=== PATIENT | female | born 1975 | race Caucasian/White ===

== ENCOUNTER 2016-10-15 07:40 | Inpatient (IN) | payer OTHER ==
[~2016-10-15 07:40] MED LIST: ACTOPLUS MET 151 TA PO; ACTOS15 MG; ADVIL200 M1 PO; AMARYL4 MG PO; AMETHIA LO TAB1 EAC1 PO; ANEXSIA 5/325 M1 TAB PO; BABY ASPIRIN81 MG; BYETTA5 MCG/0.02; EFFEXOR XR150 MG; EMEND40 MG PO; ENDOCET1 EA PO; FLINTSTONE1 TAB.CHEW; FOLIC ACID0.4 MG; GLIMEPIRIDE; GLUCOPHAGE XR750 MG PO; GLUCOPHAGE500 MG PO; HUMALOG100 U/ML; HUMALOG100 UNITS/ SC; HUMULIN 50/50 V10 ML; HYDROCODONE-AP473 ML PO; INVOKAMET XR 11 EACH PO; KEFLEX500 MG PO; KYTRIL1 MG; LEVAQUIN500 MG PO; LEVAQUIN750 M1 PO; LEVEMIR100 U/M SQ; LEVEMIR100 U/ML SQ; LUNESTA3 MG; METFORMIN HCL850 MG PO; MULTIVITAMIN1 CAP PO; NORCO 5-325 TA1 EACH PO; NORCO 5/3251 TAB PO; NOVOLOG100 UNIT/1 SQ; PERCOCET 5/3251 TAB PO; POTASSIUM99 M5 PO; PROTONIX40 MG; SEPTRA DS TABLE1 TAB PO; TOPAMAX25 MG PO; TOUJEO SOL300 UNIT/1 SC; ULTRACET TABLET1 TAB PO; VICTOZA0.6 MG/0.1 SQ; [UNRECOGNIZED DRUG - OTHER]
[2016-10-15 08:33] LABS: HCT-HEMATOCRIT 53.1 % (34.0-49.0); HGB-HEMOGLOBIN 18.1 gm/dl (12.0-15.5); MCH (MEAN CORPUSCULAR HGB) 30.3 pg (28.0-32.0); MCHC MEAN CORPUSCULAR HGB CONC 34.1 % (32.0-36.0); MCV (MEAN CELL VOLUME) 88.8 fl (82.0-96.0); MEAN PLATELET VOLUME 8.6 cmc (9.4-12.4); PLATELET COUNT 335 tho/cmm (150-450); RED BLOOD COUNT 5.98 mil/cmm (4.00-5.20); RED CELL DISTRIBUTION WIDTH 12.5 % (12.4-16.4); WHITE BLOOD COUNT 24.3 tho/cmm (4.0-10.0)
[2016-10-15] MEDS ORDERED: CEFUROXIME500 M1 PO (08:34)
[2016-10-15 08:39] LABS: KETONE-BETA (WHOLE BLOOD) 4.6 mmol/L (0.0-0.6)
[2016-10-15 08:49] LABS: PREGNANCY-SERUM NEGATIVE (NEGATIVE)
[2016-10-15 08:53] LABS: URINE BILIRUBIN NEGATIVE (NEG); URINE BLOOD MODERATE (NEG); URINE GLUCOSE (UA) LARGE (NEG); URINE KETONE LARGE (NEG); URINE LEUKOCYTE ESTERASE NEGATIVE (NEG); URINE NITRITE NEGATIVE (NEG); URINE PROTEIN MODERATE (NEG)
[2016-10-15 08:56] LABS: URINE APPEARANCE HAZY; URINE COLOR PALE YELLOW
[2016-10-15 08:57] LABS: ALB/GLOB RATIO 0.9 (0.8-2.0); ALBUMIN 4.1 g/dl (3.5-5.0); ALKALINE PHOSPHATASE 158 U/L (33-138); ALT/SGPT 20 U/L (12-78); AST/SGOT 19 U/L (10-40); BILIRUBIN,TOTAL 0.5 mg/dl (0-1.5); BLOOD UREA NITROGEN 18 mg/dl (6-24); CALCIUM 9.1 mg/dl (8.5-10.5); CHLORIDE 101 mmol/l (96-110); CREATININE 1.19 mg/dl (0.50-1.10); LIPASE 105 U/L (73-393); MAGNESIUM 2.3 mg/dl (1.8-2.6); POTASSIUM 5.6 mmol/L (3.7-5.1); SODIUM 131 mmol/L (135-145); eGFR VALUE FOR BLACK 67 mL/Min
[2016-10-15 08:59] LABS: URINE WBC RARE /[HPF] (0-5)
[2016-10-15 09:00] LABS: ANION GAP 32 mmol/L (0-20)
[2016-10-15 09:00] LABS: URINE AMORPHOUS 1+; URINE EPITHELIAL CELLS RARE /[HPF] (0-10)
[2016-10-15 09:01] LABS: CARBON DIOXIDE-VENOUS 4 mmol/L (22-32); GLUCOSE 499 mg/dL (70-110)
[2016-10-15 09:05] LABS: BAND % 7 % (0-20); BAND ABSOLUTE COUNT 1.7 tho/cmm (0-2.0)
[2016-10-15] MEDS ORDERED: IBUPROFEN800 M1 PO (09:36)
[2016-10-15 12:23] LABS: ARTERIAL BLD GAS O2 SATURATION 98 % (95-98); ARTERIAL PO2 140 mmHg (70-100); BICARBONATE 2 mmol/L (21-28)
[2016-10-15 12:29] LABS: ANION GAP 28 mmol/L (0-20); BLOOD UREA NITROGEN 17 mg/dl (6-24); CALCIUM 7.6 mg/dl (8.5-10.5); CHLORIDE 108 mmol/l (96-110); CREATININE 0.94 mg/dl (0.50-1.10); GLUCOSE 362 mg/dL (70-110); POTASSIUM 4.8 mmol/L (3.7-5.1); SODIUM 136 mmol/L (135-145); eGFR VALUE FOR BLACK 89 mL/Min
[2016-10-15 12:34] LABS: ABG CO2 ARTERIAL 2 mmol/L (21-27); ARTERIAL BLOOD GAS PCO2 9 mmHg (32-45); PH 6.89 Units (7.35-7.45)
[2016-10-15 12:41] LABS: CARBON DIOXIDE-VENOUS 5 mmol/L (22-32)
[2016-10-15 13:29] LABS: ARTERIAL BLD GAS O2 SATURATION 97 % (95-98); ARTERIAL PO2 129 mmHg (70-100); BICARBONATE 2 mmol/L (21-28)
[2016-10-15 13:31] LABS: ABG CO2 ARTERIAL 2 mmol/L (21-27); ARTERIAL BLOOD GAS PCO2 9 mmHg (32-45); PH 6.92 Units (7.35-7.45)
[2016-10-15 16:29] LABS: MAGNESIUM 1.9 mg/dl (1.8-2.6)
[2016-10-15 17:22] LABS: PHOSPHOROUS 1.4 mg/dl (2.5-4.9)
[2016-10-15 17:43] LABS: ARTERIAL BLD GAS O2 SATURATION 98 % (95-98); ARTERIAL PO2 115 mmHg (70-100); BICARBONATE 4 mmol/L (21-28); BLOOD GAS BASE EXCESS -27 mM/L (-/+3)
[2016-10-15 17:45] LABS: ABG CO2 ARTERIAL 4 mmol/L (21-27); ARTERIAL BLOOD GAS PCO2 15 mmHg (32-45); PH 7.05 Units (7.35-7.45)
[2016-10-15 19:24] LABS: BLOOD UREA NITROGEN 16 mg/dl (6-24); CALCIUM 7.4 mg/dl (8.5-10.5); CHLORIDE 117 mmol/l (96-110); CREATININE 0.79 mg/dl (0.50-1.10); GLUCOSE 236 mg/dL (70-110); POTASSIUM 4.3 mmol/L (3.7-5.1); SODIUM 141 mmol/L (135-145); eGFR VALUE FOR BLACK >90 mL/Min
[2016-10-15 19:30] LABS: ANION GAP 24 mmol/L (0-20)
[2016-10-15 19:32] LABS: CARBON DIOXIDE-VENOUS 4 mmol/L (22-32)
[2016-10-15 20:51] LABS: ANION GAP 20 mmol/L (0-20); BLOOD UREA NITROGEN 12 mg/dl (6-24); CALCIUM 7.3 mg/dl (8.5-10.5); CHLORIDE 118 mmol/l (96-110); CREATININE 0.66 mg/dl (0.50-1.10); GLUCOSE 172 mg/dL (70-110); POTASSIUM 4.3 mmol/L (3.7-5.1); SODIUM 140 mmol/L (135-145); eGFR VALUE FOR BLACK >90 mL/Min
[2016-10-15 20:53] LABS: CARBON DIOXIDE-VENOUS 6 mmol/L (22-32)
[2016-10-16 01:14] LABS: ANION GAP 20 mmol/L (0-20); BLOOD UREA NITROGEN 11 mg/dl (6-24); CALCIUM 6.9 mg/dl (8.5-10.5); CHLORIDE 119 mmol/l (96-110); CREATININE 0.76 mg/dl (0.50-1.10); GLUCOSE 196 mg/dL (70-110); POTASSIUM 3.8 mmol/L (3.7-5.1); SODIUM 143 mmol/L (135-145); eGFR VALUE FOR BLACK >90 mL/Min
[2016-10-16 01:29] LABS: CARBON DIOXIDE-VENOUS 8 mmol/L (22-32)
[2016-10-16 04:22] LABS: HCT-HEMATOCRIT 39.8 % (34.0-49.0); MCH (MEAN CORPUSCULAR HGB) 29.4 pg (28.0-32.0); MCHC MEAN CORPUSCULAR HGB CONC 35.2 % (32.0-36.0); MEAN PLATELET VOLUME 8.1 cmc (9.4-12.4); NEUTROPHIL-AUTOMATED 9.4 tho/cmm (1.6-8.0); RED BLOOD COUNT 4.77 mil/cmm (4.00-5.20); RED CELL DISTRIBUTION WIDTH 12.6 % (12.4-16.4); WHITE BLOOD COUNT 13.4 tho/cmm (4.0-10.0)
[2016-10-16 04:28] LABS: ANION GAP 18 mmol/L (0-20); BLOOD UREA NITROGEN 11 mg/dl (6-24); CALCIUM 7.4 mg/dl (8.5-10.5); CARBON DIOXIDE-VENOUS 11 mmol/L (22-32); CHLORIDE 118 mmol/l (96-110); CREATININE 0.74 mg/dl (0.50-1.10); GLUCOSE 154 mg/dL (70-110); MAGNESIUM 2.1 mg/dl (1.8-2.6); POTASSIUM 3.5 mmol/L (3.7-5.1); SODIUM 143 mmol/L (135-145); eGFR VALUE FOR BLACK >90 mL/Min
[2016-10-16 04:30] LABS: ANION GAP 16 mmol/L (0-20); BLOOD UREA NITROGEN 10 mg/dl (6-24); CALCIUM 7.4 mg/dl (8.5-10.5); CARBON DIOXIDE-VENOUS 11 mmol/L (22-32); CHLORIDE 118 mmol/l (96-110); CREATININE 0.75 mg/dl (0.50-1.10); GLUCOSE 154 mg/dL (70-110); POTASSIUM 3.5 mmol/L (3.7-5.1); SODIUM 141 mmol/L (135-145); eGFR VALUE FOR BLACK >90 mL/Min
[2016-10-16 04:33] LABS: KETONE-BETA (WHOLE BLOOD) 2.1 mmol/L (0.0-0.6)
[2016-10-16 04:51] LABS: MCV (MEAN CELL VOLUME) 83.4 fl (82.0-96.0); PLATELET COUNT 157 tho/cmm (150-450)
[2016-10-16 04:59] LABS: ARTERIAL BLD GAS O2 SATURATION 99 % (95-98); ARTERIAL PO2 112 mmHg (70-100); BLOOD GAS BASE EXCESS -17 mM/L (-/+3)
[2016-10-16 05:00] LABS: ARTERIAL BLOOD GAS PCO2 21 mmHg (32-45); BICARBONATE 9 mmol/L (21-28); PH 7.24 Units (7.35-7.45)
[2016-10-16 05:02] LABS: ABG CO2 ARTERIAL 9 mmol/L (21-27)
[2016-10-16 05:02] LABS: PHOSPHOROUS 0.7 mg/dl (2.5-4.9)
[2016-10-16 07:27] LABS: BAND % 14 % (0-20); BAND ABSOLUTE COUNT 1.9 tho/cmm (0-2.0)
[2016-10-16 10:02] LABS: TSH-THYROID STIMULATING HORM. 1.51 uIU/ml (0.40-3.80)
[2016-10-16 10:28] LABS: ANION GAP 18 mmol/L (0-20); BLOOD UREA NITROGEN 10 mg/dl (6-24); CALCIUM 7.4 mg/dl (8.5-10.5); CARBON DIOXIDE-VENOUS 11 mmol/L (22-32); CHLORIDE 122 mmol/l (96-110); CREATININE 0.67 mg/dl (0.50-1.10); GLUCOSE 98 mg/dL (70-110); POTASSIUM 3.6 mmol/L (3.7-5.1); SODIUM 147 mmol/L (135-145); eGFR VALUE FOR BLACK >90 mL/Min
[2016-10-16 12:54] LABS: ANION GAP 17 mmol/L (0-20); BLOOD UREA NITROGEN 8 mg/dl (6-24); CALCIUM 7.8 mg/dl (8.5-10.5); CARBON DIOXIDE-VENOUS 11 mmol/L (22-32); CHLORIDE 124 mmol/l (96-110); CREATININE 0.59 mg/dl (0.50-1.10); GLUCOSE 88 mg/dL (70-110); POTASSIUM 3.9 mmol/L (3.7-5.1); SODIUM 148 mmol/L (135-145); eGFR VALUE FOR BLACK >90 mL/Min
[2016-10-16 16:46] LABS: BLOOD UREA NITROGEN 8 mg/dl (6-24); CALCIUM 7.5 mg/dl (8.5-10.5); CARBON DIOXIDE-VENOUS 13 mmol/L (22-32); CHLORIDE 124 mmol/l (96-110); CREATININE 0.57 mg/dl (0.50-1.10); SODIUM 150 mmol/L (135-145); eGFR VALUE FOR BLACK >90 mL/Min
[2016-10-16 16:48] LABS: ANION GAP 16 mmol/L (0-20)
[2016-10-16 16:50] LABS: GLUCOSE 66 mg/dL (70-110); PHOSPHOROUS 0.5 mg/dl (2.5-4.9)
[2016-10-16 22:24] LABS: BLOOD UREA NITROGEN 5 mg/dl (6-24); CALCIUM 7.8 mg/dl (8.5-10.5); CHLORIDE 114 mmol/l (96-110); CREATININE 0.64 mg/dl (0.50-1.10); MAGNESIUM 2.3 mg/dl (1.8-2.6); PHOSPHOROUS 1.2 mg/dl (2.5-4.9); POTASSIUM 3.5 mmol/L (3.7-5.1); SODIUM 142 mmol/L (135-145); eGFR VALUE FOR BLACK >90 mL/Min
[2016-10-16 22:31] LABS: ANION GAP 25 mmol/L (0-20)
[2016-10-16 22:33] LABS: GLUCOSE 287 mg/dL (70-110)
[2016-10-16 22:34] LABS: CARBON DIOXIDE-VENOUS 7 mmol/L (22-32)
[2016-10-17 00:49] LABS: ANION GAP 19 mmol/L (0-20); BLOOD UREA NITROGEN 4 mg/dl (6-24); CALCIUM 7.7 mg/dl (8.5-10.5); CARBON DIOXIDE-VENOUS 10 mmol/L (22-32); CHLORIDE 118 mmol/l (96-110); CREATININE 0.59 mg/dl (0.50-1.10); GLUCOSE 257 mg/dL (70-110); MAGNESIUM 2.2 mg/dl (1.8-2.6); PHOSPHOROUS 1.3 mg/dl (2.5-4.9); POTASSIUM 3.8 mmol/L (3.7-5.1); SODIUM 143 mmol/L (135-145); eGFR VALUE FOR BLACK >90 mL/Min
[2016-10-17 02:34] LABS: ANION GAP 17 mmol/L (0-20); BLOOD UREA NITROGEN 5 mg/dl (6-24); CALCIUM 7.1 mg/dl (8.5-10.5); CARBON DIOXIDE-VENOUS 10 mmol/L (22-32); CHLORIDE 120 mmol/l (96-110); CREATININE 0.52 mg/dl (0.50-1.10); GLUCOSE 227 mg/dL (70-110); PHOSPHOROUS 1.4 mg/dl (2.5-4.9); POTASSIUM 3.9 mmol/L (3.7-5.1); SODIUM 143 mmol/L (135-145); eGFR VALUE FOR BLACK >90 mL/Min
[2016-10-17 04:14] LABS: BASO % 0.2 % (0-2); HCT-HEMATOCRIT 35.1 % (34.0-49.0); HGB-HEMOGLOBIN 12.3 gm/dl (12.0-15.5); IMMATURE GRANULOCYTES ABSOLUTE 0.12 tho/cmm (0-0.03); IMMATURE GRANULOCYTES PERCENT 1.8 % (0-0.3); LYMPH % 22.2 % (20-45); LYMPH ABSOLUTE COUNT 1.5 tho/cmm (0.8-4.5); MCH (MEAN CORPUSCULAR HGB) 29.4 pg (28.0-32.0); MEAN PLATELET VOLUME 8.1 cmc (9.4-12.4); MONO % 9.1 % (0-12); MONOCYTE ABSOLUTE COUNT 0.6 tho/cmm (0.0-1.2); NEUTROPHIL ABSOLUTE COUNT 4.4 tho/cmm (1.6-8.0); NEUTROPHIL-AUTOMATED 4.4 tho/cmm (1.6-8.0); NEUTROPHILS % 66.7 % (40-80); PLATELET COUNT 112 tho/cmm (150-450); RED BLOOD COUNT 4.18 mil/cmm (4.00-5.20); RED CELL DISTRIBUTION WIDTH 13.6 % (12.4-16.4)
[2016-10-17 04:21] LABS: WHITE BLOOD COUNT 6.6 tho/cmm (4.0-10.0)
[2016-10-17 04:24] LABS: ANION GAP 16 mmol/L (0-20); BLOOD UREA NITROGEN 4 mg/dl (6-24); CALCIUM 7.5 mg/dl (8.5-10.5); CARBON DIOXIDE-VENOUS 12 mmol/L (22-32); CHLORIDE 119 mmol/l (96-110); CREATININE 0.56 mg/dl (0.50-1.10); GLUCOSE 220 mg/dL (70-110); MAGNESIUM 2.2 mg/dl (1.8-2.6); PHOSPHOROUS 1.7 mg/dl (2.5-4.9); SODIUM 143 mmol/L (135-145); eGFR VALUE FOR BLACK >90 mL/Min
[2016-10-17 08:17] LABS: ANION GAP 17 mmol/L (0-20); BLOOD UREA NITROGEN 4 mg/dl (6-24); CALCIUM 7.5 mg/dl (8.5-10.5); CARBON DIOXIDE-VENOUS 13 mmol/L (22-32); CHLORIDE 122 mmol/l (96-110); CREATININE 0.51 mg/dl (0.50-1.10); GLUCOSE 206 mg/dL (70-110); PHOSPHOROUS 1.4 mg/dl (2.5-4.9); POTASSIUM 3.9 mmol/L (3.7-5.1); SODIUM 148 mmol/L (135-145); eGFR VALUE FOR BLACK >90 mL/Min
[2016-10-17 09:59] LABS: ANION GAP 16 mmol/L (0-20); BLOOD UREA NITROGEN 4 mg/dl (6-24); CALCIUM 7.8 mg/dl (8.5-10.5); CARBON DIOXIDE-VENOUS 13 mmol/L (22-32); CHLORIDE 123 mmol/l (96-110); CREATININE 0.47 mg/dl (0.50-1.10); GLUCOSE 205 mg/dL (70-110); POTASSIUM 4.1 mmol/L (3.7-5.1); SODIUM 148 mmol/L (135-145); eGFR VALUE FOR BLACK >90 mL/Min
[2016-10-17 11:05] LABS: ANION GAP 16 mmol/L (0-20); BLOOD UREA NITROGEN 4 mg/dl (6-24); CALCIUM 7.5 mg/dl (8.5-10.5); CARBON DIOXIDE-VENOUS 14 mmol/L (22-32); CHLORIDE 121 mmol/l (96-110); CREATININE 0.45 mg/dl (0.50-1.10); GLUCOSE 207 mg/dL (70-110); POTASSIUM 4.2 mmol/L (3.7-5.1); SODIUM 147 mmol/L (135-145); eGFR VALUE FOR BLACK >90 mL/Min
[2016-10-17 11:08] LABS: PROTHROMBIN TIME 11.4 SECONDS (9.0-13.6)
[2016-10-17 13:32] LABS: ANION GAP 16 mmol/L (0-20); BLOOD UREA NITROGEN 3 mg/dl (6-24); CALCIUM 7.6 mg/dl (8.5-10.5); CARBON DIOXIDE-VENOUS 14 mmol/L (22-32); CHLORIDE 118 mmol/l (96-110); CREATININE 0.46 mg/dl (0.50-1.10); GLUCOSE 244 mg/dL (70-110); POTASSIUM 4.1 mmol/L (3.7-5.1); SODIUM 144 mmol/L (135-145); eGFR VALUE FOR BLACK >90 mL/Min
[2016-10-17 16:57] LABS: ANION GAP 18 mmol/L (0-20); BLOOD UREA NITROGEN 3 mg/dl (6-24); CALCIUM 7.5 mg/dl (8.5-10.5); CARBON DIOXIDE-VENOUS 14 mmol/L (22-32); CHLORIDE 118 mmol/l (96-110); CREATININE 0.46 mg/dl (0.50-1.10); GLUCOSE 269 mg/dL (70-110); PHOSPHOROUS 1.9 mg/dl (2.5-4.9); POTASSIUM 3.9 mmol/L (3.7-5.1); SODIUM 146 mmol/L (135-145); eGFR VALUE FOR BLACK >90 mL/Min
[2016-10-17 22:56] LABS: ANION GAP 13 mmol/L (0-20); BLOOD UREA NITROGEN 2 mg/dl (6-24); CALCIUM 7.6 mg/dl (8.5-10.5); CARBON DIOXIDE-VENOUS 18 mmol/L (22-32); CHLORIDE 117 mmol/l (96-110); CREATININE 0.41 mg/dl (0.50-1.10); GLUCOSE 191 mg/dL (70-110); POTASSIUM 3.8 mmol/L (3.7-5.1); SODIUM 144 mmol/L (135-145); eGFR VALUE FOR BLACK >90 mL/Min
[2016-10-18 04:52] LABS: ANION GAP 13 mmol/L (0-20); BLOOD UREA NITROGEN 2 mg/dl (6-24); CALCIUM 7.5 mg/dl (8.5-10.5); CARBON DIOXIDE-VENOUS 20 mmol/L (22-32); CHLORIDE 120 mmol/l (96-110); GLUCOSE 129 mg/dL (70-110); KETONE-BETA (WHOLE BLOOD) <0.1 mmol/L (0.0-0.6); PHOSPHOROUS 1.6 mg/dl (2.5-4.9); POTASSIUM 3.4 mmol/L (3.7-5.1); SODIUM 150 mmol/L (135-145); eGFR VALUE FOR BLACK >90 mL/Min
[2016-10-18 05:05] LABS: ABG CO2 ARTERIAL 20 mmol/L (21-27); ARTERIAL BLD GAS O2 SATURATION 99 % (95-98); ARTERIAL BLOOD GAS PCO2 32 mmHg (32-45); ARTERIAL PO2 111 mmHg (70-100); BICARBONATE 19 mmol/L (21-28); BLOOD GAS BASE EXCESS -5 mM/L (-/+3); PH 7.39 Units (7.35-7.45)
[2016-10-18 16:06] LABS: ANION GAP 15 mmol/L (0-20); BLOOD UREA NITROGEN 1 mg/dl (6-24); CALCIUM 7.5 mg/dl (8.5-10.5); CARBON DIOXIDE-VENOUS 20 mmol/L (22-32); CHLORIDE 112 mmol/l (96-110); CREATININE 0.42 mg/dl (0.50-1.10); POTASSIUM 3.6 mmol/L (3.7-5.1); SODIUM 143 mmol/L (135-145); eGFR VALUE FOR BLACK >90 mL/Min
[2016-10-18 16:07] LABS: GLUCOSE 271 mg/dL (70-110)
[2016-10-19 04:34] LABS: ANION GAP 11 mmol/L (0-20); BLOOD UREA NITROGEN 1 mg/dl (6-24); CALCIUM 8.1 mg/dl (8.5-10.5); CARBON DIOXIDE-VENOUS 23 mmol/L (22-32); CHLORIDE 113 mmol/l (96-110); CREATININE 0.51 mg/dl (0.50-1.10); GLUCOSE 182 mg/dL (70-110); KETONE-BETA (WHOLE BLOOD) <0.1 mmol/L (0.0-0.6); PHOSPHOROUS 2.1 mg/dl (2.5-4.9); POTASSIUM 3.4 mmol/L (3.7-5.1); SODIUM 144 mmol/L (135-145); eGFR VALUE FOR BLACK >90 mL/Min
[2016-10-19] MEDS ORDERED: IBUPROFEN800 M1 PO (10:44)
[2016-10-19] MEDS ORDERED: POTASSIUM99 M5 PO (10:46)
[2016-10-19] MEDS ORDERED: METFORMIN HCL500 M2 PO (10:50)
[2016-10-19] MEDS ORDERED: POTASSIUM CHLO20 ME3 PO (10:54)
== END 2016-10-19 12:45 | DRG 638 ==
LOC: EDMED 07:40 → EMR2 13:28 → CCU 13:43 → PCUA 10-16 13:33 → CCU 10-17 00:50 → PCUB 10-17 14:51
PROVIDERS: Emergency Medicine; Internal Medicine; ADMIT Hospitalist
PROC: 02HV33Z Insertion of Infusion Device into Superior Vena Cava, Percutaneous Approach (ICD-10-PCS; principal; 2016-10-15)
PROC: 4A02X4A Measurement of Cardiac Electrical Activity, Guidance, External Approach (ICD-10-PCS; 2016-10-15)
DX: E13.10 Other specified diabetes mellitus with ketoacidosis without coma (principal); N17.9 Acute kidney failure, unspecified; E87.0 Hyperosmolality and hypernatremia; E83.39 Other disorders of phosphorus metabolism; E87.8 Other disorders of electrolyte and fluid balance, not elsewhere classified; D69.6 Thrombocytopenia, unspecified; E87.6 Hypokalemia; E83.51 Hypocalcemia; E86.0 Dehydration; J06.9 Acute upper respiratory infection, unspecified; E66.01 Morbid (severe) obesity due to excess calories; Z68.30 Body mass index [BMI] 30.0-30.9, adult; K59.00 Constipation, unspecified; Z98.84 Bariatric surgery status; Z79.3 Long term (current) use of hormonal contraceptives; Z79.84 Long term (current) use of oral hypoglycemic drugs; Z79.4 Long term (current) use of insulin; Z79.899 Other long term (current) drug therapy; Z83.3 Family history of diabetes mellitus
CPT/HCPCS: C1751; J0610; J0696; J1650; J1815; J2405; J2997; J3475; J3480; J7030; J7050; Q9967